=== PATIENT | female | born 2000 | race Caucasian/White ===

== ENCOUNTER 2020-08-03 16:09 | Emergency (ER) | payer SELFPAY ==
[~2020-08-03] VITALS: Ht 160 cm; Wt 131.5 kg
[2020-08-03 16:15] VITALS: BP 136/90
[2020-08-03] MEDS ORDERED: LIDOCAINE MPF 1% 10 MG/ML VIAL INJ ONE (16:25)
[2020-08-03] MEDS ORDERED: KETOROLAC 30 MG/ML VIAL IM ONE (16:25)
[2020-08-03] MEDS ORDERED: BACITRACIN OINT 500 UNITS/GM PKT TP ONE (16:30)
[2020-08-03] MEDS ORDERED: IBUPROFEN 600 MG TAB ONE (16:43)
[2020-08-03] MEDS ORDERED: IBUPROFEN 600 MG TAB PO ONE (16:45)
--- NOTE | 2020-08-03 16:52 | NUR ---
[id number]---- pt d/c by BROWN Beltran with VSS.
== END 2020-08-03 16:49 | disposition home or self-care (01) ==
LOC: MED 16:09
DX: S61.307A Unspecified open wound of left little finger with damage to nail, initial encounter (principal); W23.0XXA Caught, crushed, jammed, or pinched between moving objects, initial encounter; Y93.89 Activity, other specified; Y92.89 Other specified places as the place of occurrence of the external cause; Y99.8 Other external cause status
CPT/HCPCS: 11730; 99284; J2001; J1885

== ENCOUNTER 2021-09-25 12:19 | Emergency (ER) | payer MEDICAID ==
[~2021-09-25] VITALS: Ht 157.5 cm; Wt 113.4 kg
[2021-09-25 12:29] VITALS: BP 135/62
[2021-09-25] MEDS ORDERED: TETRACAINE HCL/PF 0.5% OPTH 4 ML BTL ONE (12:42)
[2021-09-25] MEDS ORDERED: FLUORESCEIN OPTH STRIP 1 MG ONE (12:43)
[2021-09-25] MEDS ORDERED: NAPR-54 PO (12:54)
[2021-09-25] MEDS ORDERED: ERYT5OIN58 OP (12:54)
[2021-09-25 13:05] VITALS: BP 135/62
--- NOTE | 2021-09-25 13:06 | NUR ---
Patient discharged with v/s stable. Written and verbal after care instructions given and explained. Patient alert, oriented and verbalized understanding of instructions. Ambulatory with steady gait. All questions addressed prior to discharge. ID band removed. Patient advised to follow up with PMD. Rx of ERYTHROMYCIN OINTMENT, NAPROXEN given. Patient educated on indication of medication including possible reaction and side effects. Opportunity to ask questions provided and answered.
== END 2021-09-25 13:06 | disposition home or self-care (01) ==
LOC: MED 12:19
DX: S05.02XA Injury of conjunctiva and corneal abrasion without foreign body, left eye, initial encounter (principal); J45.909 Unspecified asthma, uncomplicated; Z98.84 Bariatric surgery status; X58.XXXA Exposure to other specified factors, initial encounter; Y93.89 Activity, other specified; Y92.89 Other specified places as the place of occurrence of the external cause; Y99.8 Other external cause status
CPT/HCPCS: 99283